=== PATIENT | male | born 1950 | race Caucasian/White ===

== ENCOUNTER 2018-06-24 07:16 | Inpatient (IN) ==
[2018-06-24] MEDS ORDERED: Chlorhexidine Gluconate 2% 1 Pack (2 Cloths) TOPICAL ONE (08:14)
[2018-06-24] MEDS ORDERED: Metoprolol Tartrate 25 MG Tablet PO ONE (08:14)
[2018-06-24] MEDS ORDERED: Sodium Chlor 0.9% Inj 500 ML IV.SIG SCH (09:00)
[2018-06-24] MEDS: Vancomycin Inj 1,000 MG in Sodium Chlor 0.9% Inj 250 ML IV.SIG SCH ×2 (09:10→22:37)
[2018-06-24] MEDS ORDERED: Lidocaine PF 1% Inj 5 ML Syringe INFILTRATN ONE (10:17)
[2018-06-24] MEDS ORDERED: SODIUM CHLOR 0.9% TOPICAL SCH ×3 (11:00)
[2018-06-24] MEDS ORDERED: RIFAMPIN TOPICAL SCH ×3 (11:00)
[2018-06-24] MEDS ORDERED: GENTAMICIN TOPICAL SCH ×3 (11:00)
--- NOTE | 2018-06-24 13:27 | ECG ---
Date Performed: 06/24/2018 Time Performed: 08:06:01 PTAGE: 68 years EKG: ELECTRONIC ATRIAL PACEMAKER ABNORMAL RHYTHM ECG NO PREVIOUS TRACING DOCTOR: Ezio Blanca Interpretating Date/Time 06/24/2018 13:26:50
[2018-06-24] MEDS ORDERED: fentaNYL Citrate Inj 100 MCG/2 ML Ampul ONE (13:39)
--- NOTE | 2018-06-24 13:45 | P.OP ---
- Preoperative Diagnosis (1) Malfunction of penile prosthesis - Postoperative Diagnosis (1) Malfunction of penile prosthesis Date of procedure: 06/24/18 Implants: Coloplast Titan IPP 26cm Anesthesia: other (Gen. 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 He had a penile prosthesis placed approximately 2 years ago and was unable to inflate or deflate his prosthesis. Decision was made to bring the patient to the operating room to undergo replacement with removal of existing penile prosthesis. Risk and benefits were discussed preoperatively the patient is willing to proceed. Patient was brought to the operating room and identified by myself is Brando Gomez. He was placed in the supine position, shaved and then prepped for 10 minutes, received general LMA anesthesia and preprocedure antibiotics were administered. 16 English coud catheter was then inserted. The scrotal incision was made in a horizontal fashion and the underlying tubing was identified. Using the Bovie cautery, the overlying tissue above the tubing was cut. A small corporotomy was then made and 2-0 PDS sutures were then placed on each side of the corporotomy. This was performed on both sides. The cylinders on each side were then delivered. Antibiotic solution was then used to flush both corporal bodies. The tubing was cut and clamped and the cylinders were removed. The pump in the inferior part of the scrotum was then removed. Again antibiotic solution was used to washout the lower scrotum. Measurements of the corporal bodies were taken and it was noted to be 26 cm. The tightening prosthesis was then placed in antibiotic solution. Both cylinders were replaced and then these were tested. The cylinders were in both in good position and there was no evidence of any buckling. The corporotomies were then closed with the overlying 2-0 PDS suturing. A 3 cm incision was then made in the suprapubic region lateral to midline on the left side. The bladder was emptied. The residual reservoir was identified and removed. The new reservoir was then placed into the pocket after antibiotic solution was washed throughout the pocket. The tubing and was brought through the scrotum and down to where the pump was sitting. The pump was secured with 2-0 Vicryl sutures. The cylinders were inflated. The tubing on each side was then attached to the corporal bodies. This is also done with the reservoir after 120 cc were filled into the reservoir. The incision in the lower abdomen then was closed with a 2-0 Vicryl suture and then franky were used to close the skin. The scrotal skin was then closed with a running Monocryl suture. The patient was then awoken and extubated transferred recovery in stable condition. He tolerated procedure well. He will be kept overnight and then discharged in the morning after he undergoes a voiding trial.
[2018-06-24] MEDS ORDERED: *Labetalol HCl Inj 100 MG/20 ML Vial PERIprocedural Use ONLY IV.PUSH ONE (14:11)
[2018-06-24] MEDS ORDERED: *morphine SULFATE 10 MG/ML PERIprocedure ONLY ONE ×2 (14:19→14:49)
[2018-06-24] MEDS: Sodium Chloride 0.45 % Inj 1,000 ML IV.CONT SCH (14:30)
[2018-06-24] MEDS ORDERED: Pantoprazole Sodium 20 MG DR Tablet PO ONE (15:00)
[2018-06-24] MEDS ORDERED: SODIUM CHLOR 0.9% IV.SIG SCH (15:00)
[2018-06-24] MEDS ORDERED: AMPICILLIN IV.SIG SCH (15:00)
[2018-06-24] MEDS: Gabapentin 400 MG Capsule PO SCH (17:28)
[2018-06-24] MEDS: oxyCODONE/Acetaminophen 10/325 Tablet PO PRN (22:35)
[2018-06-25] MEDS: Sodium Chloride 0.45 % Inj 1,000 ML IV.CONT SCH ×2 (00:14→10:37)
[2018-06-25] MEDS: Morphine Sulfate Inj 2 MG/ML Vial IV.PUSH PRN ×2 (06:04→10:48)
--- NOTE | 2018-06-25 08:38 | P.PNURO ---
Subjective Patient symptoms today: Pt seen and examined. [place] out. Feels well. Objective Vital Signs: Vital Signs 06/24/18 13:30 06/24/18 13:40 06/24/18 13:45 Temperature 97.4 F L Pulse Rate 83 80 Respiratory Rate 17 16 Blood Pressure 170/81 H 166/86 H Pulse Oximetry 98 98 97 06/24/18 14:00 06/24/18 14:15 06/24/18 14:30 Temperature Pulse Rate 86 65 62 Respiratory Rate 20 18 14 Blood Pressure 199/86 H 172/76 H 192/76 H Pulse Oximetry 97 97 99 06/24/18 14:40 06/24/18 14:45 06/24/18 15:00 Temperature 98.1 F Pulse Rate 64 66 Respiratory Rate 16 14 Blood Pressure 175/78 H 166/74 H 175/73 H Pulse Oximetry 96 99 06/24/18 16:00 06/24/18 20:00 06/25/18 00:00 Temperature 97.7 F 99 F 98.5 F Pulse Rate 77 75 80 Respiratory Rate 18 18 18 Blood Pressure 178/83 H 133/77 121/61 Pulse Oximetry 98 97 96 06/25/18 04:00 Temperature 98.7 F Pulse Rate 78 Respiratory Rate 18 Blood Pressure 134/67 Pulse Oximetry 95 Intake & Output 06/24/18 06/25/18 06/25/18 18:59 06:59 18:59 Intake Total 750 / 750 1550 / 1550 Output Total 250 / 250 1600 / 1600 Balance 500 / 500 -50 / -50 Weight 72.8 kg Intake: IV 650 / 650 1550 / 1550 1/2 Normal Saline Inj 1,000 ML 1000 / 1000 @ 100 mls/hr IV.CONT .Q10H RADHA Rx#:[id number] Ampicillin Inj 1,000 MG In NS 100 / 100 Inj 100 ML @ 400 mls/hr IV.SIG [employer]IC [employer]RARY ASSISTANT RADHA Rx#:[id number] Ampicillin Inj 500 MG In NS Inj 100 / 100 200 / 200 100 ML @ 200 mls/hr IV.SIG Q6H RADHA Rx#:[id number] LR 1000 mL Inj 1,000 ML @ 30 300 / 300 mls/hr IV.SIG .Q24H RADHA Rx#: [id number] Vancomycin Inj 1,000 MG In NS 250 / 250 250 / 250 Inj 250 ML @ 250 mls/hr IV.SIG Q12H RADHA Rx#:[id number] Anesthesia Amount 100 / 100 Output: Urine 1600 / 1600 Estimated Blood Loss 50 / 50 Urine Amount (Catheter) 200 / 200 Coude 200 / 200 Other: Weight On Admission 72.8 kg Medications and IVs: Active Medications Generic Name Dose Route Start Last Admin Trade Name Baq PRN Reason Stop Dose Admin Albuterol 2 puff 06/24/18 16:00 06/25/18 04:12 Ventolin Hfa Inh INH Not Given Q4HR RADHA Bupropion HCl 150 mg 06/25/18 09:00 Wellbutrin Sr PO DAILY RADHA Sodium Chloride 60 ml/ 0 ml 06/24/18 11:00 06/24/18 11:03 Rifampin 600 mg/ Gentamicin TOPICAL 06/27/18 10:59 1 ml Sulfate 160 mg [employer]IC [employer] ASSISTANT RADHA Administration Enalapril Maleate 10 mg 06/25/18 09:00 Vasotec PO DAILY RADHA Gabapentin 800 mg 06/24/18 18:00 06/24/18 17:28 Neurontin PO 800 mg TID RADHA Administration Vancomycin HCl 1,000 mg/ 250 mls @ 250 mls/hr 06/24/18 09:00 06/24/18 10:10 Sodium Chloride IV.SIG 06/27/18 08:59 Infused [employer]IC [employer] ASSISTANT RADHA Infusion Sodium Chloride 500 mls @ 30 mls/hr 06/24/18 09:00 06/24/18 15:13 Ns Inj IV.SIG Not Given .Q10H RADHA Vancomycin HCl 1,000 mg/ 250 mls @ 250 mls/hr 06/24/18 21:00 06/25/18 00:13 Sodium Chloride IV.SIG 06/25/18 09:59 Infused Q12H RADAH Infusion Sodium Chloride 1,000 mls @ 100 mls/hr 06/24/18 13:23 06/25/18 00:14 1/2 Normal Saline Inj IV.CONT 100 mls/hr .Q10H RADHA Administration Ampicillin Sodium 500 mg/ 100 mls @ 200 mls/hr 06/24/18 16:00 06/25/18 04:42 Sodium Chloride IV.SIG Infused Q6H RADHA Infusion Metformin HCl 500 mg 06/25/18 09:00 Glucophage PO DAILY RADHA Miscellaneous Information 0 each 06/24/18 13:30 Misc Nursing Information OTHER 06/25/18 13:29 UNSCH PRN SEE LABEL COMMENTS Morphine Sulfate 2 mg 06/24/18 13:20 06/25/18 06:04 Morphine Inj IV.PUSH 2 mg Q3H PRN Administration pain 6-10 Ondansetron HCl 4 mg 06/24/18 13:22 Zofran Inj IV.PUSH Q6H PRN NAUSEA OR VOMITING Oxycodone/Acetaminophen 1 tab 06/24/18 13:27 06/24/18 22:35 Percocet 10/325 Mg PO 1 tab Q6H PRN Administration PAIN 1-5 Objective Remarks: Abd:soft,nt,nd Wound: clean and dry [place] out. Assessment and Plan - Plan Stable s/p IPP change D/C home F/U 1 week for staple removal Continue all home meds.
[2018-06-25] MEDS: Vancomycin Inj 1,000 MG in Sodium Chlor 0.9% Inj 250 ML IV.SIG SCH ×2 (08:53→09:00)
[2018-06-25] MEDS: oxyCODONE/Acetaminophen 10/325 Tablet PO PRN (08:53)
[2018-06-25] MEDS: Gabapentin 400 MG Capsule PO SCH (08:53)
[2018-06-25] MEDS ORDERED: buPROPion 150 MG 12 HR Tablet PO SCH (09:00)
== END 2018-06-25 12:49 | disposition home or self-care (01) ==
LOC: HSDC 07:16 → HSDI 13:18 → N05 15:18
PROVIDERS: ADMIT Urology; ATTEND Urology